=== PATIENT | male | born 2000 | race African-American/Black ===

== ENCOUNTER 2023-12-09 23:38 | Emergency (ER) | payer MEDICAID ==
[~2023-12-09] VITALS: Ht 172.7 cm; Wt 77.0 kg
[2023-12-09 23:57] VITALS: O2SAT 100
[2023-12-10 01:30] LABS: CLARITY URINE CLEAR (CLEAR); COLOR URINE YELLOW (YELLOW); GLUCOSE URINE NEGATIVE (NEGATIVE); KETONES URINE TRACE (NEGATIVE); LEUKOCYTE ESTERASE URINE NEGATIVE (NEGATIVE); NITRITE URINE NEGATIVE (NEGATIVE); OCCULT BLOOD URINE NEGATIVE (NEGATIVE); PROTEIN URINE NEGATIVE (NEGATIVE)
[2023-12-10 01:31] LABS: BASOPHILS % 1.2 % (0.0-2.0); CARBON DIOXIDE 27 mEq/L (21-32); CHLORIDE 106 mEq/L (98-107); HEMATOCRIT. 42.9 % (42.0-52.0); HEMOGLOBIN. 14.6 g/dL (14.0-18.0); MEAN CORPUSCULAR HEMOGLOBIN 31.6 pg (28.0-32.0); MEAN CORPUSCULAR VOLUME 92.9 fL (80.0-94.0); MEAN PLATELET VOLUME 9.4 fl (7.4-10.4); MONOCYTES % 7.9 % (2.0-8.0); NEUTROPHILS % 51.9 % (40.0-76.0); PLATELET 220 x1000/uL (130-400); POTASSIUM 3.6 mEq/L (3.5-5.1); RED BLOOD CELL COUNT 4.61 mill/uL (4.7-6.1); RED CELL DISTRIBUTION WIDTH 13.9 % (11.6-14.6); SODIUM 141 mEq/L (136-145); WHITE BLOOD COUNT 3.4 x1000/uL (4.5-11.0)
[2023-12-10 01:32] LABS: CALCIUM 9.6 mg/dL (8.7-10.4)
[2023-12-10 01:36] LABS: CREATININE 0.9 mg/dL (0.6-1.3)
[2023-12-10 01:37] LABS: ETHANOL BLOOD 13 mg/dL (<10); GLUCOSE 95 mg/dL (70-105); UREA NITROGEN BLOOD 7 mg/dL (9-23)
[2023-12-10 01:38] LABS: ACETAMINOPHEN < 2 ug/mL (10-30)
[2023-12-10 01:44] LABS: *AMPHETAMINES SCREEN URINE NEGATIVE (NEGATIVE)
[2023-12-10 01:46] LABS: *BARBITURATES SCREEN URINE NEGATIVE (NEGATIVE); *BENZODIAZEPINES SCREEN URINE NEGATIVE (NEGATIVE); *COCAINE SCREEN URINE NEGATIVE (NEGATIVE); CANNABINOID URINE SCREEN PRESUMPTIVE POSITIVE (NEGATIVE); ECSTASY MDMA SCREEN URINE NEGATIVE (NEGATIVE); METHADONE URINE SCREEN NEGATIVE (NEGATIVE); OPIATES URINE SCREEN NEGATIVE (NEGATIVE); PHENCYCLIDINE URINE SCREEN NEGATIVE (NEGATIVE)
[2023-12-10] MEDS: DIPHENHYDRAMINE 25MG CAPSULE PO ONE (02:07)
[2023-12-10 03:12] LABS: ALANINE AMINOTRANSFERASE 14 IU/L (10-49); ALBUMIN 4.5 g/dL (3.2-4.8); ASPARTATE AMINOTRANSFERASE 18 IU/L (<34); BILIRUBIN DIRECT 0.4 mg/dL (<=3.0); BILIRUBIN TOTAL 1.3 mg/dL (0.1-1.0)
[2023-12-10 15:22] VITALS: BP 114/73; PULSE 67; RESP 18; TEMP 98.4
== END 2023-12-10 16:47 ==
LOC: ER 23:38
DX: R45.851 Suicidal ideations (principal); F43.10 Post-traumatic stress disorder, unspecified; Z20.822 Contact with and (suspected) exposure to COVID-19
CPT/HCPCS: 36415 ×2; 99285; 80076; 80305; 80048; 81003; 80307; 80329; 80320; 85025; 87426; Q0163; G0480